=== PATIENT | female | born 1990 | race Caucasian/White ===

== ENCOUNTER 2019-09-13 01:42 | Outpatient (CLI) | payer OTHER, SELFPAY ==
[2019-09-13 19:21] LABS: SARS-CoV-2 RNA PCR Negative
== END 2019-09-13 01:43 | disposition home or self-care (01) ==
LOC: ANHCOVIDDT 01:42
PROVIDERS: PCP Physician Assistant; Visit Provider Obstetrics & Gynecology
DX: Z01.812 Encounter for preprocedural laboratory examination (principal); Z11.59 Encounter for screening for other viral diseases
CPT/HCPCS: 36415; 86850; 86900; 86901; 87635; C9803; U0003

== ENCOUNTER 2019-09-13 09:15 | Outpatient (CLI) | payer OTHER, SELFPAY | END 2019-09-13 09:16 | disposition home or self-care (01) | PROVIDERS: Visit Provider Obstetrics & Gynecology | DX: R10.2 Pelvic and perineal pain (principal); Z01.812 Encounter for preprocedural laboratory examination | CPT/HCPCS: 36415; 86850; 86900; 86901 ==

== ENCOUNTER 2019-09-15 02:44 | Day surgery (SDC) | payer OTHER, SELFPAY ==
[2019-09-15] VITALS (15 sets, daily range): BP systolic 92–133; BP diastolic 52–88; PULSE 65–102; RESP 13–20; TEMP 36.1–37.1; O2SAT 97–100
[2019-09-15] MEDS: ceFAZolin 2 GM/D5W 50 ML 2 GM/50 ML BAG IVPB (07:41)
--- NOTE | 2019-09-15 07:56 | WPDANESEPPF ---
Anes - Initial Pre Proc Eval Procedure: Operation Date: 09/15/19 09:00 Proposed Procedures p Total Laparoscopic Hysterectomy - Maurice Brar MD Date/Time: 09/15/19 07:56 Surgeon: Maurice Brar MD Pre Op Diagnosis: Pelvic and Perineal Pain Patient Data Age: 29 Gender: F Height: Weight: 118 kg Allergies Allergy/AdvReac Type Severity Reaction Status Date / Time No Known Allergies Allergy Verified 07/22/18 05:45 Home Medications Medication Instructions Recorded Confirmed Type bupropion HCl 300 mg PO QAM 09/01/19 09/01/19 History escitalopram oxalate 10 mg PO DAILY 09/01/19 09/01/19 History Patient hx anesthesia problems: none Family hx anesthesia problems: none [facility] Past Medical History Medical History (Updated 09/15/19 @ 07:19 by Lance Eckert MD) Anxiety Depression Migraine Social History Social History Gender identity (if verbalized by the patient): Female Spiritual care concerns: No Anes - Eval Final PreProcedure Day of Procedure 09/15/19 07:56 Patient weight: obese Heart: regular rate and rhythm Lungs: clear to auscultation Airway: Mallampati scale class II Neurological: alert and oriented Last oral intake: >/= 8 hours ASA classification: II Emergent: no Anesthetic plan: proceed Anesthesia type and monitoring: general ETT and standard monitoring Informed Consent: The patient's anesthetic plan and its attendant risks and benefits were discussed with the patient/family/POA. Questions were solicited and answers provided to the satisfaction of the patient/family/POA.
[2019-09-15] MEDS: ACETAMINOPHEN 500 MG TABLET 1000 MG PO (08:00)
[2019-09-15] MEDS: KETOROLAC 15 MG/ML VIAL (*BKC) IV PUSH (08:00)
--- NOTE | 2019-09-15 08:03 | WPDHPUPDATE1 ---
History and Physical Update Update Date/Time: 09/15/19 08:03 History and Physical has been reviewed, including an updated exam of the patient. There are NO changes in the patient's condition. Risks, benefits, and alternatives have been discussed and questions answered. Patient agrees to proceed with procedure.
[2019-09-15] MEDS: LACTATED RINGERS 1,000 ML 30 ML IV CONT ×3 (08:09→11:29)
--- NOTE | 2019-09-15 10:47 | PM.PROC ---
Procedure Note - Detailed Date of procedure: 09/15/19 Pre-op diagnosis: Pelvic and Perineal Pain Post-op diagnosis: same (Right OVarian Cyst) Procedure performed: Total laparoscopic hysterectomy. Right Ovarian Cystectomy Description of procedure: The patient was taken to the operating room. She was prepped and draped in the dorsal lithotomy position. A speculum was placed in the vagina. The cervix was grasped with a tenaculum. Stay sutures were placed at 3 and 9:00 a.m. of 0 Vicryl. The stay sutures were brought through the Christo up. The FABY manipulator was placed in the vagina with a fixed Christo cup. The cup was then pushed up around the cervix. The sutures were tied to the handle of the FABY manipulator. A 5 mm incision was made on the abdominal skin of the left upper quadrant using a scalpel. A 5 mm trocar was inserted into the intra-abdominal cavity under direct visualization the scope. Pneumoperitoneum was achieved. An 11 mm incision was made in the left lower quadrant of the abdomen with a scalpel. A 11 mm trocar was inserted into the intra-abdominal cavity under direct visualization the scope. A 5 mm periumbilical incision was made. A 5 mm scope was placed into the intra-abdominal cavity under direct visualization of the scope. Right ovarian cystectomy was performed with ligasure. Cyst was unroofed and the capsule peeled out. The suspensory ligament of the ovary was cauterized and transected with ligature cautery in a bilateral fashion. The fallopian tubes were cauterized and transected in a bilateral fashion with LigaSure cautery. The round ligaments were cauterized and transected in bilateral fashion with LigaSure cautery. The round ligaments were cauterized and transected bilaterally with LigaSure cautery. The broad ligaments were cauterized and transected along the lateral aspects of the uterus down the level of the uterine arteries. A bladder flap was created using sharp and blunt dissection. The ureters were dissected out bilaterally down to the level of the uterine arteries. They could be visualized from the pelvic brim down the uterine arteries. Staying very close to the cervix the parametrium was cauterized transected in a stepwise fashion down to the level of the Christo cup. The Bladder flap was moved distally over the Christo cup using sharp and blunt dissection. The impression of the entire cup was visualized around the cervix. An incision was made with unipolar cautery down under the Christo cup creating a colpotomy incision all the way around the cervix. The uterus tubes and ovaries were taken out through the vagina. A pneumo occluder was placed in the vagina. The vagina was closed with 0 V lock suture in a running fashion. The ureters were identified again and found to be intact to the level of the uterine arteries. The pelvis was irrigated with a copious amount of antibiotic irrigation. The pneumoperitoneum was reduced. The trocars were removed. The skin was closed subcuticular 4 Monocryl covered with Dermabond. The pneumo occluder was removed from the vagina. The vagina was irrigated with Betadine. The patient tolerated the procedure well. She was taken to the recovery room in stable condition. Sponge lap and needle counts were correct x2. Anesthesia: GETA Surgeon: Maurice Brar MD Estimated blood loss (mL): 150 Drains: No Packing: No Pathology: yes Complications: No immediate complications Condition: stable Disposition: PACU Findings: Absent Left Adenexa, 6cm right ovarian cyst - benign appearance. Uterus - 7
[2019-09-15] MEDS: diphenhydrAMINE HCl INJ 50 MG/ML VIAL 12.5 MG IV PUSH (12:45)
[2019-09-15] MEDS: SIMETHICONE 80 MG TAB.CHEW PO ×3 (15:39→22:35)
--- NOTE | 2019-09-15 16:25 | OBPPTRN ---
Addendum entered by Lizzette Rueda RN 09/15/19 16:27: to room at 1202 Original Note: Patient transferred to room #378 via Bed. Oriented to unit, room, information board, admission packet and security measures. Patient verbalizes understanding.
[2019-09-15] MEDS: KETOROLAC 30 MG/ML VIAL (*BKC) IV PUSH (17:18)
[2019-09-15] MEDS: IBUPROFEN 600 MG TABLET PO (19:16)
[2019-09-16] MEDS: KETOROLAC 30 MG/ML VIAL (*BKC) IV PUSH (00:09)
[2019-09-16] MEDS: SIMETHICONE 80 MG TAB.CHEW PO ×4 (00:09→07:54)
[2019-09-16] MEDS: IBUPROFEN 600 MG TABLET PO (03:03)
[2019-09-16 04:50] VITALS: BP 122/75; PULSE 86; RESP 16; TEMP 36.6; O2SAT 99
[2019-09-16 07:40] VITALS: BP 140/80; PULSE 86; RESP 16; TEMP 37.5; O2SAT 100
[2019-09-16] MEDS: buPROPion HCL XL (24 HR) 150 MG TABCR 300 MG PO (07:54)
--- NOTE | 2019-09-16 08:28 | PM.GYNPNOP ---
[employer] - A/P Postoperative Procedures: Procedures Operation Date: 09/15/19 09:00 Actual Procedures Side Surgeon p Total Laparoscopic Hysterectomy, Right Ovarian Cystectomy Not Applicable Maurice Brar MD Postoperative day: 1 Postoperative status: doing well and other (Tollerating Regular Diet) Postoperative plan: routine post-op care and discharge Time Spent With Patient Time: Total time spent is greater than 50% in coordination of care (as documented) at patient's floor/unit and/or counseling patient: Time with patient: 15 - 25 minutes [employer]- PN:Subj Post-Op Subjective Date/time seen: 09/16/19 08:28 Subjective: patient reports feeling better, pain is well controlled and patient is tolerating oral intake Exam Const: General: cooperative, healthy appearing, comfortable and no acute distress Resp: Auscultation: no crackles, no rales, no rhonchi and no wheezes Cardio: Rhythm: regular rhythm Heart sounds: no click and no murmurs GI: Inspection: non-distended Auscultation: normal bowel sounds Other: Incisions - CDI Extrem: General: normal to inspection, no pedal edema and no calf tenderness [employer] - PN: Obj Data Vital Signs Vital Signs: Vital Signs - 24 hr 09/15/19 10:48 09/15/19 11:00 09/15/19 11:15 Temperature 98.0 F Pulse Rate 65 67 66 Respiratory Rate 14 13 14 Blood Pressure 131/86 125/74 128/78 Pulse Oximetry 100 100 100 09/15/19 11:30 09/15/19 11:45 09/15/19 12:13 Temperature 97.5 F L Pulse Rate 75 78 95 Respiratory Rate 16 18 16 Blood Pressure 127/76 133/81 129/88 Pulse Oximetry 100 98 99 09/15/19 12:15 09/15/19 12:30 09/15/19 13:00 Temperature Pulse Rate 81 83 90 Respiratory Rate 16 16 16 Blood Pressure 123/84 109/76 94/56 L Pulse Oximetry 100 97 98 09/15/19 13:30 09/15/19 14:00 09/15/19 15:00 Temperature 98.1 F Pulse Rate 81 72 85 Respiratory Rate 16 16 18 Blood Pressure 105/60 96/58 L 92/52 L Pulse Oximetry 97 97 99 09/15/19 19:19 09/15/19 22:35 09/16/19 04:50 Temperature 98.3 F 98.8 F 97.9 F Pulse Rate 96 102 H 86 Respiratory Rate 16 16 16 Blood Pressure 101/59 L 120/76 122/75 Pulse Oximetry 99 100 99 Intake/Output Intake/Output: Intake & Output 09/13/19 09/14/19 09/15/19 09/16/19 23:59 23:59 23:59 23:59 Intake Total 1050 1200 Output Total 300 Balance 750 1200 Meds/Results Medications: Active Medications Generic Name Dose Route Start Last Admin Trade Name Freq PRN Reason Stop Dose Admin Hydrocodone Bitart/Acetaminophen 1 tab 09/15/19 11:52 09/16/19 07:54 [place] 5-325 Mg PO 1 tab Q3H PRN Administration Pain Rated 5 or Less Hydrocodone Bitart/Acetaminophen 1 tab 09/15/19 11:52 09/15/19 22:35 [place] 10-325 Mg PO 1 tab Q3H PRN Administration Pain Rated 6 or Greater Bupropion HCl 300 mg 09/16/19 09:00 09/16/19 07:54 Wellbutrin Xl (24 Hr) PO 300 mg QAM CRYS Administration Escitalopram Oxalate 10 mg 09/16/19 09:00 Lexapro PO DAILY CRYS Ibuprofen 600 mg 09/15/19 11:52 09/16/19 03:03 Motrin PO 600 mg Q6H PRN Administration Cramping Ketorolac Tromethamine 30 mg 09/15/19 11:52 09/16/19 00:09 Toradol Inj IV PUSH 09/20/19 11:53 30 mg Q6H PRN Administration Pain Rated 4-6 Naloxone HCl 0.1 mg 09/15/19 11:52 Narcan IV PUSH Q2M PRN Respiratory rate less than 10 Ondansetron HCl 4 mg 09/15/19 11:01 Zofran Inj IV PUSH ONCE PRN Nausea Simethicone 80 mg 09/15/19 15:04 09/16/19 07:54 Mylicon PO 80 mg Q2HR PRN Administration Gas Discomfort
--- NOTE | 2019-09-16 09:34 | WPDANESPN ---
Anes - Prog Note Post-Op Date/Time: 09/16/19 09:34 Cardiovascular status: normal Respiratory status: normal Airway patency: baseline Mental status: baseline Post-Op hydration status: normal Vital Signs: Last Vital Signs Temp 37.5 C 09/16/19 07:40 Pulse 86 09/16/19 07:40 Resp 16 09/16/19 07:40 BP 140/80 09/16/19 07:40 Pulse Ox 100 09/16/19 07:40 I/O: Intake & Output 09/15/19 09/16/19 09/16/19 23:59 07:59 15:59 Intake Total 200 1200 Output Total 100 Balance 100 1200 Post-procedural complaints: none Patient Feedback: Patient satisfied with anesthetic care.
== END 2019-09-16 10:06 | disposition home or self-care (01) ==
LOC: ANHSURGERY 06:41 → ANHOB2 11:54
PROVIDERS: Visit Provider Obstetrics & Gynecology
PROC: 0UT9FZZ Resection of Uterus, Via Natural or Artificial Opening With Percutaneous Endoscopic Assistance (ICD-10-PCS; CPT 58570; principal; 2019-09-15 09:00)
DX: R10.2 Pelvic and perineal pain (principal); N83.11 Corpus luteum cyst of right ovary; N80.0 Endometriosis of uterus; N73.6 Female pelvic peritoneal adhesions (postinfective); F41.8 Other specified anxiety disorders; E66.9 Obesity, unspecified
CPT/HCPCS: 58570; 58662; 88305; 88307; 99199; A9270; J0330; J0690; J1100; J1170; J1200; J1885; J2250; J2405; J2704; J2710; J3010; J7030; J7120